=== PATIENT | male | born 2000 | race Caucasian/White ===

== ENCOUNTER 2024-02-25 07:51 | Emergency (ER) | payer OTHER ==
[~2024-02-25] VITALS: Ht 182.9 cm; Wt 56.8 kg
[2024-02-25 07:57] VITALS: TEMP 97.3
[2024-02-25] MEDS ORDERED: Tetanus,Diphther Toxoid Adult 0.5 ML SYRINGE IM ONE (08:15)
[2024-02-25] MEDS ORDERED: Rabies Immune Globulin PF 300 UNITS/2 ML VIAL IM ONE (08:15)
[2024-02-25 09:00] VITALS: BP 110/63; PULSE 70
== END 2024-02-25 09:01 | disposition home or self-care (01) ==
LOC: COL.ER 07:51
DX: S60.461A Insect bite (nonvenomous) of left index finger, initial encounter (principal); Z23 Encounter for immunization; W57.XXXA Bitten or stung by nonvenomous insect and other nonvenomous arthropods, initial encounter